=== PATIENT | female | born 1980 | race Caucasian/White ===

== ENCOUNTER 2022-01-14 14:46 | Outpatient (CLI) | payer BC | END 2022-01-14 14:47 | disposition home or self-care (01) | LOC: CSHMAMMO 14:46 | PROVIDERS: ATTEND Family Medicine | DX: Z12.31 Encounter for screening mammogram for malignant neoplasm of breast (principal) | CPT/HCPCS: 77063; 77067 ==

== ENCOUNTER 2023-03-27 12:58 | Outpatient (CLI) | payer BC | END 2023-03-27 12:59 | disposition home or self-care (01) | LOC: CSHMAMMO 12:58 | PROVIDERS: ATTEND Family Medicine | DX: Z12.31 Encounter for screening mammogram for malignant neoplasm of breast (principal); N64.89 Other specified disorders of breast | CPT/HCPCS: 77063; 77067 ==

== ENCOUNTER 2024-01-20 10:08 | Outpatient (CLI) | payer BC | END 2024-01-20 10:09 | disposition home or self-care (01) | LOC: CSHRAD 10:08 | PROVIDERS: ATTEND Family Medicine | DX: R10.13 Epigastric pain (principal); J90 Pleural effusion, not elsewhere classified; J98.11 Atelectasis; R18.8 Other ascites | CPT/HCPCS: 74150 ==